=== PATIENT | female | born 1935 | race Caucasian/White ===

== ENCOUNTER 2017-04-06 15:19 | Observation (INO) | payer OTHER ==
[~2017-04-06] VITALS: Ht 157.5 cm; Wt 68.3 kg
[~2017-04-06 15:19] MED LIST: ALPRAZOLAM0.25 M2 PO; BISACODYL SUPP10 MG PR; CENTRUM SILVER1 EAC3 PO; COLACE100 MG PO; Cipro PO; DOCUSATE SODIU100 MG PO; DULCOLAX10 MG PR; HYDROCODON-ACE1 EAC7 PO; LIDODERM 5% P1 PATCH TD; LIPITOR20 MG PO; LISINOPRIL10 MG PO; LISINOPRIL20 MG PO; LISINOPRIL5 MG PO; MACROBID100 MG PO; MILK OF MAGNESI10 ML PO; NORCO 5/3251 TABLET PO; OMEPRAZOLE PO; OMEPRAZOLE20 M2 PO; OMEPRAZOLE20 MG PO; PRILOSEC20 MG PO; PRINIVIL20 MG PO; TYLENOL REGULA325 MG PO; XANAX0.25 MG PO
[2017-04-06 16:15] LABS: EOSINOPHIL (%) 1.2 % (0-5); EOSINOPHIL COUNT 0.1 K/uL (0-0.3); HEMATOCRIT 29.1 % (36.0-46.0); IMMATURE GRANULOCYTE (%) 0.3 % (0.0-0.7); INSTRUMENT ABS NEUTROPHIL CT 4.8 K/uL; LYMPHOCYTE COUNT 1.2 K/uL (1.0-2.8); MCH 29.8 PG (29.0-34.0); MCHC 33.3 G/DL (30.0-36.0); MCV 89.5 FL (83-99); MEAN PLAT.VOLUME 9.7 uM^3 (9.5-12.4); MONOCYTE (%) 10.2 % (3-12); MONOCYTE COUNT 0.7 K/uL (0-0.8); NEUTROPHIL COUNT 4.8 K/uL (1.8-6.4); PLATELET COUNT 267 K/uL (156-360); RED BLOOD COUNT 3.25 M/uL (3.80-5.20); WHITE BLOOD COUNT 6.8 K/uL (4.1-10.2)
[2017-04-06 16:23] LABS: PTT 27.3 SEC (25-37)
[2017-04-06 16:29] LABS: CHLORIDE 100 mEq/L (99-109); POTASSIUM 4.4 mEq/L (3.7-5.4); SODIUM 133 mEq/L (136-147)
[2017-04-06 16:30] LABS: GLUCOSE 102 mg/dL (70-99)
[2017-04-06 16:32] LABS: ANION GAP 12 MEQ/L (2-14)
[2017-04-06 16:34] LABS: GFR ESTIMATE (CALCULATED) 38 mL/min/
[2017-04-06 16:35] LABS: UREA NITROGEN (BUN) 24 mg/dL (9-23)
[2017-04-06 16:44] LABS: TROP-I INTERPRETATION NEGATIVE; TROPONIN-I < 0.01 ng/mL (0.0-0.30)
[2017-04-06] MEDS ORDERED: TYLENOL EXTRA500 MG PO (18:34)
[2017-04-06 19:47] VITALS: BP 134/62
[2017-04-06 20:11] VITALS: BP 134/62
[2017-04-06 23:07] LABS: ADD MIUA? YES; BILIRUBIN NEGATIVE; BLOOD NEGATIVE; COLOR STRAW ((YELLOW)); GLUCOSE (STRIP) NEGATIVE; KETONES NEGATIVE; LEUKOCYTES LARGE; NITRITE NEGATIVE; PROTEIN (STRIP) NEGATIVE; SPECIFIC GRAVITY 1.005 (1.000-1.030); UROBILINOGEN 0.2 MG/DL (0.2-1.0)
[2017-04-06 23:18] LABS: BACTERIA NONE SEEN /HPF; EPITHELIAL CELLS RARE /HPF; MUCUS NONE SEEN /LPF; RED BLOOD CELLS 0-5 /HPF (0-5); WHITE BLOOD CELLS 30-40 /HPF (0-5)
[2017-04-06 23:23] LABS: HEMATOCRIT 25.5 % (36.0-46.0); MCV 89.2 FL (83-99)
[2017-04-06 23:46] LABS: TROP-I INTERPRETATION NEGATIVE; TROPONIN-I < 0.01 ng/mL (0.0-0.30)
[2017-04-07] VITALS (8 sets, daily range): BP systolic 111–142; BP diastolic 56–65
[2017-04-07 05:51] LABS: EOSINOPHIL (%) 0.7 % (0-5); HEMATOCRIT 26.7 % (36.0-46.0); IMMATURE GRANULOCYTE (%) 0.3 % (0.0-0.7); INSTRUMENT ABS NEUTROPHIL CT 3.8 K/uL; LYMPHOCYTE COUNT 1.3 K/uL (1.0-2.8); MCH 29.4 PG (29.0-34.0); MCHC 32.6 G/DL (30.0-36.0); MCV 90.2 FL (83-99); MEAN PLAT.VOLUME 9.7 uM^3 (9.5-12.4); MONOCYTE (%) 10.2 % (3-12); MONOCYTE COUNT 0.6 K/uL (0-0.8); NEUTROPHIL (%) 66.1 % (45-76); NEUTROPHIL COUNT 3.8 K/uL (1.8-6.4); PLATELET COUNT 227 K/uL (156-360); RBC DIS.WIDTH-CV 13.1 % (11.8-14.6); RBC DIS.WIDTH-SD 43.3 % (39-53); RED BLOOD COUNT 2.96 M/uL (3.80-5.20); WHITE BLOOD COUNT 5.8 K/uL (4.1-10.2)
[2017-04-07 06:17] LABS: ALKALINE PHOSPHATASE 68 IU/L (3-129); ANION GAP 7 MEQ/L (2-14); DIRECT BILIRUBIN 0.1 mg/dL (0.0-0.3); GFR ESTIMATE (CALCULATED) 56 mL/min/; GLUCOSE 82 mg/dL (70-99); POTASSIUM 4.4 MEQ/L (3.7-5.4); SAMPLE HEMOLYSIS CHECK 0; SAMPLE ICTERIC CHECK 0; SAMPLE LIPEMIA CHECK 0; SODIUM 139 MEQ/L (136-147); UREA NITROGEN (BUN) 17 mg/dL (9-23)
[2017-04-07 06:20] LABS: CHLORIDE 110 MEQ/L (99-109)
[2017-04-07 06:21] LABS: TOTAL BILIRUBIN 0.3 MG/DL (0.0-1.0)
[2017-04-07 06:23] LABS: TROP-I INTERPRETATION NEGATIVE; TROPONIN-I < 0.01 ng/mL (0.0-0.30)
[2017-04-07 12:15] LABS: C DIFF TOXIN NEGATIVE (NEGATIVE)
[2017-04-07 12:17] LABS: PROBE CHECK PASS; SPECIMEN PROCESSING CONTROL PASS
== END 2017-04-07 14:24 | disposition home or self-care (01) ==
LOC: EME 15:19 → EDOF 18:16 → 5WEST 18:16
PROVIDERS: Emergency Medicine; Hospitalist; Nurse Practitioner Adult Health
DX: R55 Syncope and collapse (principal); N17.9 Acute kidney failure, unspecified; E78.5 Hyperlipidemia, unspecified; I10 Essential (primary) hypertension; K21.9 Gastro-esophageal reflux disease without esophagitis; F41.9 Anxiety disorder, unspecified; D64.9 Anemia, unspecified; E66.9 Obesity, unspecified; R51 Headache
CPT/HCPCS: 70450; 71010; 80048; 80076; 81003; 84484; 85014; 85018; 85025; 85025 91; 85610; 85730; 87493; 93005; 99281; 99285; G0378; G8978 GP CI; G8979 GP CH; G8987 GO CI; G8988 GO CH; J1644; J7030